=== PATIENT | female | born 1965 | race Caucasian/White ===

== ENCOUNTER → 2017-09-21 | Outpatient (CLI) | payer MEDICAID ==
[2017-09-21 16:45] LABS: LYMPH # 2.8 K/mm3 (0.7-4.5)
[2017-09-21 17:20] LABS: BUN 15 mg/dL (7-18)
[2017-09-21 17:28] LABS: GFR (ESTIMATED) 88 ML/MIN (59-)
[2017-09-23 08:42] LABS: Vitamin D, 25-Hydroxy 21.9 ng/mL (30.0-100.0)
[2017-09-23 09:37] LABS: Creatinine, Urine 58.7 mg/dL (Not Estab.); Microalbumin, Urine 7.6 ug/mL (Not Estab.)
[2017-09-23 10:39] LABS: Folate (Folic Acid) 13.3 ng/mL (>3.0)
== END ==
LOC: LAB 16:21
PROVIDERS: Physician Assistant
DX: E11.9 Type 2 diabetes mellitus without complications (principal); E55.9 Vitamin D deficiency, unspecified; R51 Headache; Z79.899 Other long term (current) drug therapy